=== PATIENT | female | born 1935 | race Native Hawaiian/Other Pacific Islander ===

== ENCOUNTER 2017-12-30 17:29 | Emergency (ER) | payer MEDICARE ==
--- NOTE | 2017-12-30 18:45 | ED PDOC ---
HPI: Hypertension/Hypotension Chief Complaint (Provider): HTN, Dizziness History Per: Patient History/Exam Limitations: no limitations Onset/Duration Of Symptoms: Other (This morning) Current Symptoms Are (Timing): Other (Still has HTN, Dizziness has subsided) Associated Symptoms: Dizziness Additional Complaint(s): Pt is an 82 yo F with a PMH of HTN here for dizziness that started this morning , she was at rehab for her shoulder and started to feel dizzy, she then went to Dr. Mittal's office and he took her BP (systolic 200) he gave her a medication and told her to wait 2hrs then retook the BP and it was still the same so he sent her to the ED. Pt states she takes Losartan 100mg QD and is compliant with her medication and took it this morning. Patient states she takes her BP at home only when she feels like its high and it usually runs between 150-160, and she follows a salt restricted diet. Patient states she also felt a midsternal burning pain in her chest this morning as well, she cant walk over 1 block without being SOB. Denies headaches, blurry vision, chest pain, SOB, nausea, vomiting, diarrhea, constipation, or dysuria. <Lissa Beckwith - Last Filed: 12/30/17 19:12> <Leona Cuevas - Last Filed: 12/31/17 16:27> Time Seen by Provider: 12/30/17 17:49 Chief Complaint (Nursing): High Blood Pressure Supervising Attending Note - Supervising Attending Note The Documented history was done by the: [employer]ician [employer], Attending Physician The documented physical exam was done by the: [employer]ician [employer], Attending Physician The documented procedures were done by the: Physician [employer], Attending Physician - Attestation: I have personally seen and examined this patient.: Yes I have fully participated in the care of the patient.: Yes I have reviewed all pertinent clinical information, including history, physical exam and plan: Yes <Leona Cuevas - Last Filed: 12/31/17 16:27> Past Medical History Vital Signs: Last Vital Signs Temp 98.3 F 12/30/17 17:41 Pulse 72 12/30/17 17:41 Resp 18 12/30/17 17:41 BP 188/86 H 09/14/18 17:41 Pulse Ox 96 12/30/17 17:41 - Medical History PMH: HTN - Surgical History Other surgeries: R knee replacement - Family History Family History: States: No Known Family Hx - Social History Current smoker - smoking cessation education provided: No Alcohol: None Drugs: Denies <Lissa Beckwith - Last Filed: 12/30/17 19:12> Reviewed: Historical Data, Nursing Documentation, Vital Signs Vital Signs: Last Vital Signs Temp 98.3 F 12/30/17 17:41 Pulse 57 L 12/30/17 20:23 Resp 17 12/30/17 20:23 BP 153/75 H 12/30/17 20:23 Pulse Ox 96 12/30/17 20:23 <Leona Cuevas - Last Filed: 12/31/17 16:27> - Home Medications Home Medications: Ambulatory Orders Medication Instructions Recorded Losartan [Cozaar] ONCE 12/30/17 - Allergies Allergies/Adverse Reactions: Allergies Allergy/AdvReac Type Severity Reaction Status Date / Time No Known Allergies Allergy Verified 12/30/17 17:41 Review of Systems Constitutional: Positive for: Other (Fatigue) Cardiovascular: Positive for: Edema, Other (Burning located in midsternal area, denies reflux ) Respiratory: Positive for: SOB with Exertion Neurological: Positive for: Dizziness <Lissa Beckwith - Last Filed: 12/30/17 19:12> ROS Statement: Except As Marked, All Systems Reviewed And Found Negative <Leona Cuevas - Last Filed: 12/31/17 16:27> Physical Exam - Physical Exam Appears: Positive for: Well, Non-toxic, No Acute Distress Head Exam: Positive for: ATRAUMATIC, NORMAL INSPECTION, NORMOCEPHALIC Skin: Positive for: Normal Color Eye Exam: Positive for: Normal appearance, EOMI Cardiovascular/Chest: Positive for: Regular Rate, Rhythm, Edema Respiratory: Positive for: Normal Breath Sounds Gastrointestinal/Abdominal: Positive for: Normal Exam, Soft Extremity: Positive for: Pedal Edema, Swelling, Other (Shiny, tightness of skin B/L LE) Neurologic/Psych: Positive for: Alert, Oriented <Lissa Beckwith - Last Filed: 12/30/17 19:12> - Reviewed Nursing Documentation Reviewed: Yes Vital Signs Reviewed: Yes <Lenoa Cuevas - Last Filed: 12/31/17 16:27> - ECG O2 Sat by Pulse Oximetry: 96 - Progress ED Course And Treament: Pt is an 82 yo F with hx of HTN admitted for uncontrolled HTH and Dizziness -EKG -CXR -CBC -CMP -Tropoin I -BNP -Urine Dip -Clonidine 0.2mg Once <Georgina Beckwithekah - Last Filed: 12/30/17 19:12> - Laboratory Results Result Diagrams: 12/30/17 20:06 12/30/17 20:06 - Progress Re-evaluation Time: 22:24 Condition: Re-examined, Improved <MasonLeona Berna - Last Filed: 12/31/17 16:27> Disposition - Patient ED Disposition Is Patient to be Admitted: No - Disposition Disposition: Transfer of Care Disposition Time: 19:10 (Dr. Cuevas will assume care, Dispo pending ) <TangLissa - Last Filed: 12/30/17 19:12> Discussed With Dr.: oCdy Mittal Doctor Will See Patient In The: Office Counseled Patient/Family Regarding: Studies Performed, Diagnosis, Need For Followup - Disposition Disposition: Routine/Home <Leona Cuevas Berna - Last Filed: 12/31/17 16:27> - Clinical Impression Clinical Impression: Hypertension - Disposition Referrals: Cody Mittal MD [Primary Care Provider] - Condition: GOOD Additional Instructions: GABRIELA TY, thank you for letting us take care of you today. Your provider was Leona Cuevas MD and you were treated for POSS HIGH BLOOD PRESSURE. The emergency medical care you received today was directed at your acute symptoms. If you were prescribed any medication, please fill it and take as directed. It may take several days for your symptoms to resolve. Return to the Emergency Department if your symptoms worsen, do not improve, or if you have any other problems. Please contact your doctor or call one of the physicians/clinics you have been referred to that are listed on the Patient Visit Information form that is included in your discharge packet. Bring any paperwork you were given at discharge with you along with any medications you are taking to your follow up visit. Our treatment cannot replace ongoing medical care by a primary care provider outside of the emergency department. Thank you for allowing the [facility] team to be part of your care today. If you had an X-Ray or CT scan: A Radiologist will review the ED reading if any change in treatment is needed we will contact you. If you had a blood, urine, or wound culture: It will take several days for the results, if any change in treatment is needed we will contact you. If you had an STI test: It will take 48 hours for the results. Please call after 1 week if you have not heard back. Instructions: High Blood Pressure in Adults
[2017-12-30 20:11] LABS: BASO % 0.8 % (0.0-2.0); EOS # 0.1 K/uL (0.0-0.7); EOS % 2.5 % (0.0-4.0); LYMPH # 1.4 K/uL (1.0-4.3); LYMPH % 25.2 % (20.0-40.0); MEAN CORPUSCULAR HEMOGLOBIN 32.5 pg (27.0-31.0); MEAN CORPUSCULAR HGB CONC 34.2 g/dL (33.0-37.0); MEAN PLATELET VOLUME 9.1 fl (7.2-11.7); MONO # 0.5 K/uL (0.0-0.8); MONO % 9.3 % (0.0-10.0); NEUT # 3.6 K/uL (1.8-7.0); NEUT % 62.2 % (50.0-75.0); RBC 4.01 Mil/uL (3.80-5.20); RED CELL DISTRIBUTION WIDTH 13.5 % (11.5-14.5); WHITE BLOOD COUNT 5.7 K/uL (4.8-10.8)
[2017-12-30 20:37] LABS: ALB/GLOB RATIO 1.1 (1.0-2.1); ALBUMIN 4.2 g/dL (3.5-5.0); BLOOD UREA NITROGEN 14 mg/dl (7-17); CALCIUM 9.2 mg/dL (8.4-10.2); GFR NON-AFRICAN AMERICAN > 60
[2017-12-30 20:54] LABS: ALT/SGPT 64 U/L (9-52); AST/SGOT 63 U/L (14-36)
[2017-12-30 21:13] LABS: B-TYPE NATRIURETIC PEPTIDE 289 pg/ml (0-900)
[2017-12-31 07:29] VITALS: BP 136/70; PULSE 77; RESP 18; TEMP 97.9; O2SAT 99
--- NOTE | 2017-12-31 10:52 | RAD ---
Date of service: 12/30/2017 HISTORY: SOB on exertion COMPARISON: No prior. TECHNIQUE: Chest PA and lateral FINDINGS: LUNGS: No active pulmonary disease. PLEURA: No significant pleural effusion identified. No pneumothorax apparent. CARDIOVASCULAR: Heart is enlarged. There is mild uncoiling of the aorta. OSSEOUS STRUCTURES: Degenerative changes are seen in the spine. No rib fracture is seen. VISUALIZED UPPER ABDOMEN: Normal. OTHER FINDINGS: None. IMPRESSION: No active disease. Cardiomegaly.
--- NOTE | 2017-12-31 17:32 | CARD ---
APPROVED REPORT Date of service: 12/30/2017 <Conclusion> Sinus rhythm with 1st degree AV block Left axis deviation Minimal voltage criteria for LVH, may be normal variant T wave abnormality, consider anterolateral ischemia Prolonged QT Abnormal ECG
== END 2017-12-31 07:29 | disposition home or self-care (01) ==
LOC: H.ER 17:29
DX: I10 Essential (primary) hypertension (principal); R42 Dizziness and giddiness; Z96.651 Presence of right artificial knee joint